=== PATIENT | male | born 1970 | race Two or more races ===

== ENCOUNTER 2016-08-03 19:07 | Emergency (ER) | payer SELFPAY ==
--- NOTE | 2016-08-03 22:08 | CT ---
Name: MAYNOR ANDREWS Exam: CT head without contrast Comparison: None Clinical history: Trauma Technique: Helical CT was performed through the head. Angled axial reconstructions were obtained. Sagittal and coronal reconstructions were obtained as well. No contrast was given. An automated dose reduction technique was used to minimize patient radiation dose. Findings: There is no shift of midline structures. Ventricles are of normal size and configuration. There is no mass, mass effect or hemorrhage. Cisterns are uneffaced. Posterior fossa is unremarkable. Visualized paranasal sinuses and mastoid air cells are within normal limits. The calvarium is slightly misshapened. There is a small left frontal scalp hematoma without underlying fracture or suspicious foreign body. Impression: 1. Small left frontal scalp hematoma without underlying fracture 2. No acute intracranial process Note: The above report was uploaded to [facility]'s electronic medical records system at 2204 hours.
== END 2016-08-03 22:26 | disposition home or self-care (01) ==
LOC: ED 19:07
DX: S01.81XA Laceration without foreign body of other part of head, initial encounter (principal); S09.90XA Unspecified injury of head, initial encounter; W20.8XXA Other cause of strike by thrown, projected or falling object, initial encounter; Y93.H3 Activity, building and construction; Y92.9 Unspecified place or not applicable